=== PATIENT | male | born 1960 | race Caucasian/White ===

== ENCOUNTER 2025-03-30 19:06 | Emergency (ER) | payer MEDICAID ==
[~2025-03-30] VITALS: Ht 175.3 cm; Wt 73.0 kg
[2025-03-30 19:14] VITALS: O2SAT 96
[2025-03-30] MEDS: FLUORESCEIN SODIUM 1MG/STRIP RIGHTEYE ONE (19:47)
[2025-03-30] MEDS: TETRACAINE 0.5% OPHTH DROPS 4ML RIGHTEYE ONE (19:47)
[2025-03-30 19:48] VITALS: BP 102/51; PULSE 60; RESP 18; TEMP 36.7; O2SAT 96
== END 2025-03-30 20:17 | disposition home or self-care (01) ==
LOC: ER 19:38
DX: H11.31 Conjunctival hemorrhage, right eye (principal); I10 Essential (primary) hypertension; I48.91 Unspecified atrial fibrillation; Z79.01 Long term (current) use of anticoagulants
CPT/HCPCS: 99283